=== PATIENT | female | born 1975 | race Caucasian/White ===

== ENCOUNTER 2017-05-30 15:21 | Emergency (ER) | payer SELFPAY ==
[~2017-05-30] VITALS: Ht 157.5 cm; Wt 72.7 kg
[2017-05-30 15:24] VITALS: BP 141/81
== END 2017-05-30 16:34 | disposition left against medical advice (07) ==
LOC: EMS 15:25
DX: M79.644 Pain in right finger(s) (principal); Z53.21 Procedure and treatment not carried out due to patient leaving prior to being seen by health care provider